=== PATIENT | female | born 1995 | race African-American/Black ===

== ENCOUNTER 2017-01-19 23:36 | Emergency (ER) | payer OTHER ==
[~2017-01-19] VITALS: Ht 167.6 cm; Wt 69.4 kg
[2017-01-19 23:51] VITALS: BP_SYST 121
[2017-01-20] MEDS ORDERED: KETOROLAC TROMETHAMINE 60 MG/2 ML VIAL IM ONE
[2017-01-20] MEDS ORDERED: KETOROLAC TROMETHAMINE 30 MG VIAL ONE (00:15)
[2017-01-20 00:16] LABS: BILIRUBIN,URINE NEGATIVE (NEGATIVE); CLARITY/URINE SL CLOUDY (CLEAR); COLOR,URINE YELLOW (YELLOW); GLUCOSE,URINE NEGATIVE (NEGATIVE); KETONES,URINE 1+ (NEGATIVE); LEUKOCYTE ESTERASE ,URINE 1+ (NEGATIVE); NITRITE, URINE NEGATIVE (NEGATIVE); PROTEIN URINE 1+ (NEGATIVE); UROBILINOGEN,URINE 0.2 (0.2-1.0)
[2017-01-20 00:24] LABS: BLOOD, URINE TRACE (NEGATIVE)
[2017-01-20 00:28] LABS: BACTERIA,URINE MANY /HPF (None Seen); RBC,URINE 0-3 /HPF (0-3); WBC,URINE 20-50 /HPF (0-3)
[2017-01-20 00:29] LABS: MUCUS,URINE 1+ /LPF (None Seen)
[2017-01-20 00:55] VITALS: BP_SYST 122
== END 2017-01-20 00:55 | disposition home or self-care (01) ==
LOC: SED 23:36
DX: B00.9 Herpesviral infection, unspecified (principal)
CPT/HCPCS: 81000; 81025; 87086; 96372; 99284; J1885